=== PATIENT | female | born 1985 | race Caucasian/White ===

== ENCOUNTER 2016-06-07 13:58 | Emergency (ER) | payer SELFPAY ==
[~2016-06-07] VITALS: Wt 64.0 kg
[2016-06-07 14:05] VITALS: Wt 64.0 kg
[2016-06-07 14:47] LABS: URINE BLOOD (Dip) POC 2+ (NEGATIVE)
[2016-06-07] MEDS ORDERED: LIDOCAINE 1% (MDV) 20 ML INJ SC ONE (15:00)
[2016-06-07] MEDS ORDERED: CEFTRIAXONE 1 GM INJ IM ONE (15:00)
--- NOTE | 2016-06-07 15:00 | ERD ---
ER Documentation Chief Complaint Date/Time DATE: 06/07/16 TIME: 14:54 Chief Complaint FLANK PAIN X 3 DAYS HPI 31 y/o female presents to ED for bilateral flank pain for about 3 days. States that her pain is described as throbbing and nonradiating with a rate of 10/10. States that she felt like she has a fever the other day but never took her temperature. Did not take any medication for pain. Denies headache, loss of consciousness, dizziness, blurry vision, changes in vision, photophobia, facial pain, ear pain, throat pain, difficulty swallowing, neck pain, shoulder pain, chest pain, cough, hemoptysis, abdominal pain, loss of appetite, nausea, vomiting, hematochezia, diarrhea, constipation, urinary symptoms, , the possibility of being , bladder and bowel incontinences, extremity weakness, extremity tenderness, trauma, numbness or tingling sensation, difficulty walking, recent travel, recent exposure to illness, recent antibiotic use in the last 3 months, fever, chills. Allergy: NKA PMH: Pyelonephritis 6 years ago. Family medical history: AO LMP: "3 weeks ago." Medications: Denies Surgery: Appendectomy when she was 18 years old. Primary Social History: Not working at this time. Denies smoking, use of alcohol, use of illegal drugs. ROS All systems reviewed and are negative except as per history of present illness. Medications Home Meds Active Scripts Ibuprofen* (Ibuprofen*) 200 Mg Capsule, 400 MG PO Q6, #20 CAP Prov:PASILABAN,KLAR F 06/07/16 Ciprofloxacin Hcl* (Ciprofloxacin Hcl*) 500 Mg Tablet, 500 MG PO BID for 10 Days , TAB Prov:SKYLAR OSHEAAR F 06/07/16 Allergies Allergies: Coded Allergies: No Known Allergy (Unverified , 12/23/13) PMhx/Soc History of Surgery: No Anesthesia Reaction: No Hx Neurological Disorder: No Hx Respiratory Disorders: No Hx Cardiac Disorders: No Hx Psychiatric Problems: No Hx Miscellaneous Medical Probl: No Hx Alcohol Use: No Hx Substance Use: No Hx Tobacco Use: No FmHx Denies Physical Exam Vitals Vital Signs Date Time Temp Pulse Resp B/P Pulse Ox O2 Delivery O2 Flow Rate FiO2 06/07/16 14:05 101.9 128 18 119/69 99 Physical Exam CONSTITUTIONAL: Well-appearing; well-nourished; in no apparent distress. HEAD: Normocephalic; atraumatic. EYES: Conjunctiva clear, sclera non-icteric, EOM intact. PERRL Ears: Hearing intact. EACs clear, TMs non-bulging, non-inflamed, translucent & mobile, ossicles normal appearance, No obstructions, no erythema, no discharges Nose: No obstructions. No polyps. No external lesions. Mucosa non-inflamed. No external lesions, septum and turbinates normal. No rhinorrhea. No discharges. Frontal sinus is non-tender to palpation. Maxillary sinus is non-tender to palpation. MOUTH: Moist mucous membranes, no lesion, no obstructions, no vesicles, no thrush, patent airway Throat: Uvula in midline. Right tonsil is +1 with no erythema, no exudate. Left tonsil is +1 with no erythema, no exudate. Tolerating secretions well. Good gag reflex. Patent airway. Neck: Supple, without lesions, bruits, or adenopathy. No mass. Thyroid non- enlarged and non-tender to palpation. CHEST: Symmetrical chest. Respirations even and not labored. No retractions noted. CARDIOVASCULAR: Normal S1, S2. RRR. No murmurs, gallops. RESPIRATORY: Normal chest excursion with respiration; breath sounds clear and equal bilaterally; no wheezes, rhonchi, or rales. Breathing even and unlabored. Speaking in clear, full, and complete sentences w/ ease. ABDOMEN: Normal bowel sounds normal. Soft, round, non-distended, non-guarding, no tenderness, no rebound, no organomegaly, no masses, no pulsating abdominal mass. No hernia. No peritoneal signs. : Bilateral CVAs tenderness, right greater than the left. BACK: Symmetrical shoulder. Spine is midline without deformity, tenderness. No evidence of trauma or deformity. PELVIS: Stable pelvis. No evidence of trauma or deformity. MUSCULOSKELETAL: Normal gait and station. No misalignment, asymmetry, crepitation, defects, tenderness, masses, effusions, decreased range of motion, instability, atrophy or abnormal strength or tone in the head, neck, spine, ribs , pelvis or extremities. No calf tenderness. NEUROVASCULAR: Distal pulses are present. Pedal pulse are present, equal, and normal. Capillary refills are < 2 seconds. NEUROLOGIC: Alert and oriented x4. Speaks full and clear sentences. Cranial Nerves II-XII normal. Sensation to pain, touch, and proprioception normal. Grossly unremarkable. No neurologic deficits. Romberg test is negative. PSYCHOLOGICAL: The patients mood and manner are appropriate. No hallucinations , delusions. Not SI. Not HI. Has the capacity to decide for self SKIN: Normal for age and ethnicity; warm; dry; good turgor; no apparent lesions or exudates. No rashes, hives, discoloration. Intact. Results 24 hrs Laboratory Tests Test 06/07/16 14:48 Bedside Urine Blood 2+ Bedside Urine Glucose (UA) Negative Bedside Urine Ketones (LAB) 3+ Bedside Urine Leukocyte Esterase (L 1+ Bedside Urine Nitrite (LAB) Positive Bedside Urine Protein (LAB) 2+ Bedside Urine pH (LAB) 6.0 Current Medications Medications (Trade) Dose Ordered Sig/Malinda Route PRN Reason Start Time Stop Time Status Last Admin Dose Admin Ceftriaxone Sodium (Rocephin) 1 gm ONCE ONCE IM 06/07/16 15:00 06/07/16 15:01 DC 06/07/16 14:49 Lidocaine (Xylocaine 1% (Mdv) 20 ml) 20 ml ONCE ONCE SC 06/07/16 15:00 06/07/16 15:01 DC 06/07/16 14:49 Procedures/MDM Examination: Unremarkable examination except bilateral CVA tenderness, right greater than the left. Disease process, medical treatment was explained to the patient and family member. They verbalized understanding and agreed with the diagnostic tests, medical treatment, and follow-up care. POC urine : Negative Urine dip: Urine protein is 2+, urine ketones 3+, urine blood is 2+, urine nitrate is positive leukocyte esterase is 1+. Urine culture: Sent.Sent. Treatment: Rocephin IM Re-evaluation: Consultation: None Differential diagnosis: Pyelonephritis versus kidney stones versus UTI versus back pain Medical decision makin31 y/o female presents to ED for bilateral flank pain for about 3 days. Her symptoms at home and physical examination at this time is consistent with a diagnosis of pyelonephritis. Medications prescribed are the following: Cipro, Motrin. Patient and family member are made aware of the side effects and adverse reactions of the medications prescribed. Instructed on when to seek emergent and medical attention in case allergic/anaphylactic reactions or severe side effects and or adverse reactions to medications. Patient and family member verbalized understanding. Patient instructed Instructed to follow-up with his PCP in 24-48 hours. Instructed to Call 911 for chest pain, shortness of breath. Advised to come back here in ED as soon as possible for severity of symptoms which includes but not limited to: any new symptoms; shortness of breath/difficulty of breathing; cardiovascular changes; severe gastrointestinal symptoms; signs and symptoms of bleeding and or infection; signs of compartment syndrome/neurovascular changes; neurological changes/deficits. Patient and family member verbalized understanding. Upon discharge, patient is alert and oriented x 4, speaks full and clear sentences, denies pain, has no neurological deficits, has no neurovascular deficits, difficulty of breathing. Breathing even and unlabored. Lung sounds are clear to auscultation. Denies back pain this time. Not in distress. Appears comfortable. Ambulatory with steady gait. Appears satisfied with care provided here in ED. Departure Condition: Good Additional Instructions: Instructed to follow-up with his PCP in 24-48 hours. Instructed to Call 911 for chest pain, shortness of breath. Advised to come back here in ED as soon as possible for severity of symptoms which includes but not limited to: any new symptoms; shortness of breath/difficulty of breathing; cardiovascular changes; severe gastrointestinal symptoms; signs and symptoms of bleeding and or infection; signs of compartment syndrome/neurovascular changes; neurological changes/deficits. Patient and family member verbalized understanding. MT OSHEA Jun 07, 2016 15:00
[2016-06-07] MEDS ORDERED: CIPR500T4 PO (15:12)
[2016-06-07] MEDS ORDERED: IBUP200C PO (15:15)
[2016-06-07 15:17] LABS: ADD UMIC YES; URINE BILIRUBIN (Dip) 1+ (NEGATIVE); URINE BLOOD (Dip) 3+ (NEGATIVE); URINE KETONES (Dip) 40 (NEGATIVE); URINE LEUKOCYTE ESTERASE (Dip) 3+ (NEGATIVE); URINE NITRITE (Dip) POSITIVE (NEGATIVE); URINE TOTAL PROTEIN (Dip) 2+ (NEGATIVE); URINE UROBILINOGEN (Dip) >8.0 E.U./dL (0.1-1.0)
[2016-06-07 15:25] VITALS: BP 120/68; PULSE 98; RESP 18; TEMP 100.2
[2016-06-07 15:42] LABS: ICTOTEST POSITIVE (NEGATIVE); SQUAMOUS EPITHELIAL CELL,UR MANY; URINE COLOR YELLOW (YELLOW)
[2016-06-07 15:43] LABS: BACTERIA,URINE MANY
== END 2016-06-07 15:25 | disposition home or self-care (01) ==
LOC: FTE 13:58
DX: N12 Tubulo-interstitial nephritis, not specified as acute or chronic (principal)
CPT/HCPCS: 81001; 87086; J0696; 81003; 96372

== ENCOUNTER 2017-03-25 19:38 | Emergency (ER) | END 2017-03-26 00:12 | disposition home or self-care (01) | DX: O23.11 Infections of bladder in pregnancy, first trimester (principal); R10.2 Pelvic and perineal pain; Z3A.12 12 weeks gestation of pregnancy | CPT/HCPCS: 36415; 76805; 81001; 84702; 85025; 86900; 86901; Z7502; Z7610 ==

== ENCOUNTER 2017-05-30 10:00 | Inpatient (IN) | END 2017-06-01 16:15 | disposition home or self-care (01) | DRG 781 ==

== ENCOUNTER 2017-07-20 12:30 | Inpatient (IN) | END 2017-07-22 22:35 | disposition home or self-care (01) | DRG 775 ==

== ENCOUNTER 2018-06-07 | Inpatient (IN) | payer OTHER ==
[~2018-06-07] VITALS: Ht 152.4 cm; Wt 59.2 kg
[~2018-06-07] MED LIST: PREN-93 PO
[2018-06-07 01:12] VITALS: Ht 152.4 cm; Wt 59.2 kg
[2018-06-07 01:17] VITALS: BP 112/65; PULSE 93; RESP 18
[2018-06-07] MEDS ORDERED: LACTATED RINGER'S 1,000 ML IV PRN (01:19)
[2018-06-07] MEDS ORDERED: CARBOPROST 250 MCG INJ IM PRN (01:30)
[2018-06-07] MEDS ORDERED: METHYLERGONOVINE 0.2 MG INJ IM PRN (01:30)
[2018-06-07] MEDS ORDERED: BUTORPHANOL 2 MG INJ IV PRN (01:30)
[2018-06-07] MEDS ORDERED: OXYTOCIN 30 UNITS/LR 500 ML IV SCH ×2 (01:30)
[2018-06-07] MEDS ORDERED: OXYTOCIN 30 UNITS/LR 500 ML IV PRN (01:30)
[2018-06-07] MEDS ORDERED: LIDOCAINE 1% (MPF) 30 ML INJ INJ PRN (01:30)
[2018-06-07] MEDS ORDERED: MISOPROSTOL 200 MCG TAB PR PRN (01:30)
[2018-06-07] MEDS ORDERED: IBUPROFEN 600 MG TAB PO PRN (01:30)
[2018-06-07] MEDS: LACTATED RINGER'S 1,000 ML IV SCH ×4 (02:05→21:33)
[2018-06-07] MEDS: OXYTOCIN 30 UNITS/LR 500 ML IV SCH (12:41)
[2018-06-07] MEDS ORDERED: FENTAnyl 2MCG/ML-ROPIV 0.2% 100 ML ONE (20:21)
--- NOTE | 2018-06-07 21:20 | PREAC ---
Date/Time of Note Date/Time of Note DATE: 06/07/18 TIME: 21: Anesthesia Eval and Record Evaluation Time Pre-Procedure Interview DATE: 06/07/18 TIME: 21:19 Age 33 Sex female NPO: 8 hrs Preoperative diagnosis IUP Planned procedure L&D Past Medical History Past Medical History: None Surgery & Anesthesia Issues No known issue Meds Anticoagulation: No Beta Madeleine within 24 hr: No Reason Beta Madeleine not given: Pt. not on B-Madeleine Reported Medications Vit No.124/Iron/FA ( Vitamin Tablet) 1 Each Tablet, 1 EACH PO DAILY, TAB 07/20/17 Current Medications Lactated Ringer's 1,000 ml @ 125 mls/hr Q8H IV Last administered on 06/07/18at 17:16; Admin Dose 125 MLS/HR; Start 06/07/18 at 01:19 Butorphanol Tartrate (Stadol) 2 mg Q2H PRN IV PAIN; Start 06/07/18 at 01:30 Lidocaine (Xylocaine 1% (Mpf)) 30 ml ONCE PRN INJ EPISIOTOMY; Start 06/07/18 at 01:30 Oxytocin/Lactated Ringer's 500 ml @ 500 mls/hr ONCE POST IV ; Start 06/07/18 at 01:30 Oxytocin/Lactated Ringer's 500 ml @ 125 mls/hr POST IV ; Start 06/07/18 at 01:30 Ibuprofen (Motrin) 600 mg ONCE PRN PO PAIN LEVEL 1-5; Start 06/07/18 at 01:30 Lactated Ringer's 1,000 ml @ 2,000 mls/hr Q30M PRN IV ANESTHESIA Last administered on 06/07/18at 20:44; Admin Dose 2,000 MLS/HR; Start 06/07/18 at 01:19 Oxytocin/Lactated Ringer's 500 ml @ 0 mls/hr ONCE PRN IV VAGINAL BLEEDING; Start 06/07/18 at 01:30 Methylergonovine Maleate (Methergine) 0.2 mg ONCE PRN IM VAGINAL BLEEDING; Start 06/07/18 at 01:30 Carboprost Tromethamine (Hemabate) 250 mcg ONCE PRN IM VAGINAL BLEEDING; Start 06/07/18 at 01:30 Misoprostol (Cytotec) 1,000 mcg ONCE PRN MA VAGINAL BLEEDING; Start 06/07/18 at 01:30 Oxytocin/Lactated Ringer's 500 ml @ 0 mls/hr FOR AUGMENTATION IV Last administered on 06/07/18at 12:41; Admin Dose 1 MLS/HR; Start 06/07/18 at 12:00 Meds reviewed: Yes Allergies Coded Allergies: No Known Allergy (Unverified , 05/30/17) Allergies Reviewed: Yes Labs/Studies Labs Reviewed: Reviewed by anesthesiologist Result Diagram: 06/07/18 0105 Laboratory Tests 06/07/18 01:05 Blood Bank Test 06/07/18 01:05 Antibody Identification Completed Antibody Screen POSITIVE Antigen Identification Completed Blood Type A NEGATIVE test: Positive Studies: ECG Pre-procedure Exam Last vitals Vital Signs Date Temp Pulse Resp B/P (MAP) Pulse Ox O2 O2 Flow FiO2 Time Delivery Rate 06/07/18 98.1 93 18 112/65 Room Air 01:17 (81) Airway: Adequate mouth opening, Adequate thyromental dist Mallampati: Mallampati II Teeth: Normal Lung: Normal Heart: Normal ASA Physical Status ASA physical status: 2 Emergency: None Planned Anesthetic Neuraxial: Epidural Planned Pain Management Epidural Pre-operative Attestations Prior to commencing anesthesia and surgery, the patient was re-evaluated, there was verification of: *The patient's identity *The results of appropriate recent lab work and preoperative vital signs *The above evaluation not changing prior to induction *Anesthetic plan, risk benefits, alternative and complications discussed with patient/family; questions answered; patient/family understands, accepts and wishes to proceed. ROZINA GARCIA MD Jun 07, 2018 21:20
[2018-06-07] MEDS ORDERED: NALOXONE (0.4 MG/ML) INJ IV PRN (21:30)
[2018-06-07] MEDS ORDERED: DIPHENHYDRAMINE 50 MG INJ IV PRN (21:30)
[2018-06-07] MEDS ORDERED: ONDANSETRON 4 MG INJ IV PRN (21:30)
--- NOTE | 2018-06-08 02:24 | PAC ---
Date/Time of Note Date/Time of Note DATE: 06/08/18 TIME: 02:23 Post-Anesthesia Notes Post-Anesthesia Note Last documented vital signs Vital Signs Date Temp Pulse Resp B/P (MAP) Pulse Ox O2 O2 Flow FiO2 Time Delivery Rate 06/07/18 98.1 93 18 112/65 Room Air 01:17 (81) Activity: WNL Respiratory function: WNL Cardiovascular function: WNL Mental status: Baseline Pain reasonably controlled: Yes Hydration appropriate: Yes Nausea/Vomiting absent: Yes Comments BP:112/56, pulse:78, spo2:100%, T:98,6 ROZINA GARCIA MD Jun 08, 2018 02:24
[2018-06-08] MEDS: FENTAnyl 2MCG/ML-ROPIV 0.2% 100 ML BAG EPI SCH ×2 (04:41→12:13)
[2018-06-08] MEDS: LACTATED RINGER'S 1,000 ML IV SCH ×2 (04:42→13:10)
[2018-06-08] MEDS: OXYTOCIN 30 UNITS/LR 500 ML IV SCH (12:13)
--- NOTE | 2018-06-08 16:56 | HP ---
Date/Time of Note Date/Time of Note DATE: 06/08/18 TIME: 16:55 OB - History Hx of Present Free Text/Dictation at term in active labor : 3 Para: 2 Care: Good Care Ultrasounds: Normal mid trimester US Obstetrical Complications: None Medical Complications: None Past Family/Social History * Past Medical, Surgical, Family and Obstetric Histories reviewed from chart. OB Admission Exam Vital Signs Vital Signs Vital Signs Date Temp Pulse Resp B/P (MAP) Pulse Ox O2 O2 Flow FiO2 Time Delivery Rate 06/07/18 98.1 93 18 112/65 Room Air 01:17 (81) Physical Exam HEENT: WNL Heart: Rhythm Normal Lungs: Clear, Equal Abdomen: WNL Extremities: Normal Reflexes: Normal Cervical Dilatation: 10cm Effacement: 100% Station: +3 Membranes: Ruptured Amniotic Fluid: Clear Heart Rate: 130's Accelerations: Accelerations Present Decelerations: No Decelerations Varibility: Moderate Contractions on Admission: 6-10 Minutes Apart Intensity: Moderate Last 72 hours Lab Results CBC & BMP 06/07/18 01:05 OB Assessment/Plan Reason for admission: active labor Plan: Expectant Management MARY GRIMES MD Jun 08, 2018 16:56
--- NOTE | 2018-06-08 16:57 | LDN ---
Date/Time of Note Date/Time of Note DATE: 06/08/18 TIME: 16:57 Delivery Summary nsd w/o complications Placenta Delivered: Spontaneously Meconium: none Episiotomy: No Anesthesia type: Epidural Estimated blood loss: 300 Sponge & Needle done & correct: Yes All needle counts correct: Yes Any foreign bodies felt in the: No MARY GRIMES MD Jun 08, 2018 16:57
[2018-06-08] MEDS ORDERED: LACTATED RINGER'S 1,000 ML IV* SCH (19:21)
[2018-06-08] MEDS ORDERED: OXYTOCIN 30 UNITS/LR 500 ML IV SCH (19:21)
[2018-06-08] MEDS ORDERED: OXYTOCIN 30 UNITS/LR 500 ML IV PRN (19:30)
[2018-06-08] MEDS ORDERED: ZOLPIDEM 5 MG TAB PO PRN (19:30)
[2018-06-08] MEDS ORDERED: CARBOPROST 250 MCG INJ IM SCH (19:30)
[2018-06-08] MEDS ORDERED: LANOLIN HPA 1 PKT TOP PRN (19:30)
[2018-06-08] MEDS ORDERED: BENZOCAINE 20% 56 ML SPRAY TOP PRN (19:30)
[2018-06-08] MEDS: HYDROCODONE/APAP (5/325) TAB PO PRN (19:41)
[2018-06-08 20:00] VITALS: BP 109/59; PULSE 71; RESP 18
--- NOTE | 2018-06-08 20:00 | NUR ---
RECEIVED PATIENT FROM L&D. ID BAND CHECK WITH MOTHER FOR SAFETY.
[2018-06-08 21:00] VITALS: BP 101/62; PULSE 75; RESP 18
[2018-06-09] MEDS: IBUPROFEN 800 MG TAB PO SCH ×5 (00:23→23:21)
[2018-06-09 00:30] VITALS: BP 103/70; PULSE 70; RESP 18
[2018-06-09 04:00] VITALS: BP 98/72; PULSE 62; RESP 18
--- NOTE | 2018-06-09 05:20 | NUR ---
EOSS: VITAL SIGNS STABLE. NO ACUTE DISTRESS. AMBULATING AND VOIDING WELL. RHOGAM WORK UP AND CBC FOR TODAY IN AM. WELL. BONDING WELL WITH BABY.
[2018-06-09 07:45] VITALS: BP 102/59; PULSE 73; RESP 16
[2018-06-09] MEDS: HYDROCODONE/APAP (5/325) TAB PO PRN (07:52)
--- NOTE | 2018-06-09 09:36 | DS ---
Date/Time of Note Date/Time of Note DATE: 06/09/18 TIME: 09:36 Discharge Summary Admission/Discharge Info Admit Date/Time Jun 07, 2018 at 00:49 Discharge Date/Time Discharge Diagnosis term Patient Condition: Stable Hospital Course unremarkable Home Meds Reported Medications Vit No.124/Iron/FA ( Vitamin Tablet) 1 Each Tablet, 1 EACH PO DAILY, TAB 07/20/17 Primary Care Provider Pending Labs Laboratory Tests Test 06/09/18 06:25 White Blood Count 11.6 10^3/ul (4.8-10.8) Red Blood Count 2.95 10^6/ul (4.20-5.40) Hemoglobin 7.9 g/dl (12.0-16.0) Hematocrit 24.7 % (37.0-47.0) Mean Corpuscular Volume 83.7 fl (82.0-101.0) Mean Corpuscular Hemoglobin 26.8 pg (29.0-33.0) Mean Corpuscular Hemoglobin Concent 32.0 g/dl (32.0-37.0) Red Cell Distribution Width 13.1 % (11.5-14.5) Platelet Count 168 10^3/UL (140-415) Mean Platelet Volume 11.8 fl (7.4-10.4) Immature Granulocytes % 0.500 % (0.001-0.429) Neutrophils % 77.1 % (39.0-77.0) Lymphocytes % 15.9 % (15.0-51.0) Monocytes % 5.6 % (0.0-11.0) Eosinophils % 0.7 % (0.0-7.0) Basophils % 0.2 % (0.0-2.0) Nucleated Red Blood Cells % 0.0 /100WBC (0.0-0.0) Immature Granulocytes # 0.060 10^3/ul (0.0-0.031) Neutrophils # 9.0 10^3/ul (1.6-7.5) Lymphocytes # 1.9 10^3/ul (0.8-2.9) Monocytes # 0.7 10^3/ul (0.3-0.9) Eosinophils # 0.1 10^3/ul (0.0-0.5) Basophils # 0.0 10^3/ul (0.0-0.1) Nucleated Red Blood Cells # 0.0 10^3/ul (0.0-0.0) MARY GRIMES MD Jun 09, 2018 09:36
[2018-06-09 11:55] VITALS: BP 108/60; PULSE 70; RESP 16
--- NOTE | 2018-06-09 13:30 | NUR ---
Rhogam given to patient lot # [id number] exp 08/21/19
[2018-06-09 16:37] VITALS: BP 100/57; PULSE 77; RESP 18
--- NOTE | 2018-06-09 18:37 | NUR ---
EOSS: Patient's pain is well controlled during this shift. She is bonding well with her baby and is moving towards goals.
[2018-06-09 20:05] VITALS: BP 114/58; PULSE 85; RESP 20
[2018-06-10 04:10] VITALS: BP 101/70; PULSE 75; RESP 18
--- NOTE | 2018-06-10 05:38 | NUR ---
EOSS: VITAL SIGNS STABLE. AMBULATING WELL. FUNDUS FIRM. BONDING WELL WITH BABY.
[2018-06-10] MEDS: IBUPROFEN 800 MG TAB PO SCH ×2 (05:57→11:55)
[2018-06-10] MEDS ORDERED: VARICELLA VACCINE LIVE/PF 1,350 UNIT/0.5 ML ML SC* ONE (09:00)
[2018-06-10] MEDS ORDERED: DIPHTH/TET/ACEL PERTUSS (ADULT) 0.5 ML VIAL IM* ONE (09:00)
[2018-06-10] MEDS ORDERED: MEASLES,MUMPS,RUBELLA VACCINE INJ SC* ONE (09:00)
--- NOTE | 2018-06-10 16:17 | NUR ---
PT DISCHARGED HOME WITH BABY. POST CARE INSTRUCTIONS DISCUSSED AND REINFORCED. INSTRUCTED PT TO CALL CLINIC FOR A FOLLOW UP APPOINTMENT. PT IS COMFORTABLE AND STABLE. Addendum: 06/10/18 at 1621 by IVANA HOWELL RN Amended: Links added.
== END 2018-06-10 16:10 | disposition home or self-care (01) | DRG 807 ==
LOC: L-D → OBT → MERGE 00:49 → L-D 00:49 → OBT 00:49 → L-D 01:57 → PP1 06-08 20:00
PROVIDERS: ADMIT Obstetrics & Gynecology; ATTEND Obstetrics & Gynecology
PROC: 10E0XZZ Delivery of Products of Conception, External Approach (ICD-10-PCS; principal; 2018-06-08)
DX: O80 Encounter for full-term uncomplicated delivery (principal); Z37.0 Single live birth; Z3A.38 38 weeks gestation of pregnancy
CPT/HCPCS: 62319; 76815; 85025; 85610; 85730; 86592; 86850; 86870; 86885; 86900; 86901; 86902; 87340; 90686; 90715; 90716; G0463; J2405; J2590; J2790; J3010; J7120